=== PATIENT | male | born 1960 | race Caucasian/White ===

== ENCOUNTER 2022-02-02 14:06 | Inpatient (IN) | payer SELFPAY, OTHER ==
[2022-02-02] MEDS ORDERED: METOPROLOL TARTRATE 5 MG/5 ML INJ IV ONE (14:37)
[2022-02-02] MEDS ORDERED: MAGNESIUM SULFATE 1 gm IVPB 1 GM/100 ML BAG IV ONE (14:37)
[2022-02-02 15:11] LABS: Absolute Lymphocytes (CBC) 1.6 K/uL (0.7-4.9); Hematocrit 45.5 % (39.6-49.0); Lymphocytes % 22.1 % (15.3-44.8); MPV 8.8 fL (7.6-11.3); RBC Red Blood Cell Count 5.15 M/uL (4.33-5.43)
[2022-02-02 15:12] LABS: Protime INR 1.31
[2022-02-02 15:27] LABS: Albumin 3.6 g/dL (3.4-5.0); Bilirubin Direct 0.2 mg/dL (0-0.2); Bilirubin Total 0.7 mg/dL (0.2-1.0); Magnesium 2.2 mg/dL (1.8-2.4); Protein, Total 7.3 g/dL (6.4-8.2); Troponin High Sensitivity 27.5 pg/mL (<58.9)
--- NOTE | 2022-02-02 15:33 | RAD REPORT ---
EXAM DESCRIPTION: US - Extrem Venous W Compress Ashish - 02/02/2022 3:22 pm CLINICAL HISTORY: SWELLING Bilateral leg edema and swelling. COMPARISON: No comparisons TECHNIQUE: Real-time sonographic interrogation of the left and right lower extremity deep venous sys tems was performed. FINDINGS: Normal compressibility, flow augmentation, phasic flow and spontaneous flow is identified in both the left and right lower extremity deep venous systems. IMPRESSION: No sonographic evidence of left or right lower extremity deep venous thrombosis.
--- NOTE | 2022-02-02 15:46 | ER ---
Nurse's Notes [facility] Name: Kj Colon Age: 62 yrs Sex: Male : 1960 Arrival Date: 02/02/2022 Time: 14:07 Bed 26 Private MD: Diagnosis: Unspecified atrial fibrillation-new onset Presentation: 02/02 14:21 Chief complaint: Patient states: Shortness of breath x 5 days with bilateral lower jl7 extremity swelling. Coronavirus screen: shortness of breath, Client presents with at least one sign or symptom that may indicate coronavirus-19. Standard/surgical mask placed on the client. Provider contacted for isolation considerations. Ebola Screen: No symptoms or risks identified at this time. Initial Sepsis Screen: Does the patient meet any 2 criteria? No. Patient's initial sepsis screen is negative. Does the patient have a suspected source of infection? No. Patient's initial sepsis screen is negative. Risk Assessment: Do you want to hurt yourself or someone else? Patient reports no desire to harm self or others. Onset of symptoms was January 29, 2022. Care prior to arrival: None. 14:21 Method Of Arrival: Ambulatory 7 14:21 Acuity: CHEN 2 jl7 Triage Assessment: 14:24 General: Appears in no apparent distress. uncomfortable, Behavior is calm, cooperative, jl7 appropriate for age. Pain: Denies pain. Cardiovascular: Patient's skin is warm and dry. Rhythm is atrial fibrillation with rapid ventricular response. Respiratory: Reports shortness of breath Airway is patent Respiratory effort is even, labored, Respiratory pattern is symmetrical, tachypnea Onset: The symptoms/episode began/occurred gradually, the patient has moderate shortness of breath. Derm: Skin is pink, warm \\T\\ dry. Historical: - Allergies: 14:24 PENICILLINS; jl7 - Home Meds: 14:24 None [Active]; jl7 - PMHx: 14:24 None; jl7 - PSHx: 14:24 None; jl7 - Immunization history:: Client reports having NOT received the Covid vaccine. - Social history:: Smoking status: Patient denies any tobacco usage or history of. Screenin:49 Abuse screen: Denies threats or abuse. Nutritional screening: No deficits noted. ap3 Tuberculosis screening: No symptoms or risk factors identified. Fall Risk No fall in past 12 months (0 pts). No secondary diagnosis (0 pts). IV access (20 points). Ambulatory Aid- None/Bed Rest/Nurse Assist (0 pts). Gait- Normal/Bed Rest/Wheelchair (0 pts) Mental Status- Oriented to own ability (0 pts). Assessment: 14:48 General: Appears in no apparent distress. Behavior is calm, cooperative. Pain: Denies ap3 pain. Neuro: Level of Consciousness is awake, alert, obeys commands, Oriented to person, place, time, situation. Cardiovascular: Rhythm is atrial fibrillation with rapid ventricular response. Respiratory: Airway is patent Respiratory effort is even, labored, Respiratory pattern is tachypnea Breath sounds are clear in left posterior upper lobe and right posterior upper lobe. 14:50 General: ultrasound at the bedside. ap3 15:05 General: patient refusing COVID swab testing. Provider notified and reported to bedside ap3 for further education. Patient continues to refuse COVID swab testing. . 15:54 Reassessment: Patient appears in no apparent distress at this time. Patient and/or jb4 family updated on plan of care and expected duration. Pain level reassessed. Pt remains A\\T\\Ox3, continues to refuse covid swab. Respirations remain labored. HR decreased, reports being able to breathe easier, and feels less short of breath. 17:05 Reassessment: Pt reports feeling better at this time and voices that he is going to go jb4 home AMA. Informed pt that symptoms could return or worsen with further complications up to the point of . Pt verbalized understanding of risk and states " if I had insurance I would stay, but I cannot pay because I do not have insurance so I feel like I have no choice but to leave.". Informed pt that insurance is not an issue. That pt would still receive medical treatment regardless of insurance status. That the provider, and this nurse were concerned of current medical condition and felt that it is safest and best for the patient to remain in the hospital to finish treatment, and evaluation by the hospitalist, and cardiology prior to leaving the hospital to establish the best treatment plan. Pt verbalized understanding of information and continues to state " I understand and I thank you for your concern. I cannot pay the bill, I cannot afford the bill, and I want to pay it but I cannot so I feel I have no choice but to leave.". Again, reiterated risk of leaving AMA, ED provider spoke with pt. Pt continues to verbalize intent to leave AMA. AMA form signed. 17:53 Reassessment: Pt attempted to walk out of ED after signing AMA form. Pt became jb4 diaphoretic, dizzy, nauseous, SOB, Tachypneic, and unable to walk to the door. assisted pt to wheelchair. Notified provider. Pt assisted back to room, assisted to bed, Pt now states " I will stay. I have to, I can't even make it to the door." . reconnected to monitoring equipment. admitting physician at the bedside. 19:30 General: Appears in no apparent distress. uncomfortable, Behavior is calm, cooperative, al4 Patient is alert and oriented sitting up in bed talking. Patient states he feels better now compared to earlier, and denies c/p, SOB. . Pain: Denies pain. Neuro: Level of Consciousness is awake, alert, obeys commands, Oriented to person, place, time, situation. Cardiovascular: Capillary refill < 3 seconds Patient's skin is warm and dry. Chest pain is denied. Respiratory: Airway is patent Respiratory effort is unlabored, Respiratory pattern is regular. Respiratory:. Musculoskeletal: Circulation, motion, and sensation intact. 20:30 Reassessment: Patient and/or family updated on plan of care and expected duration. Pain al4 level reassessed. 20:50 Reassessment: Patient states he feels jittery after breathing treatment. Patient denies al4 C/P and SOB. Patient states he feel nauseous, emesis bag given, medication denied by patient. 21:01 Reassessment: Patients son at bedside. Patient requested to be off NC. Patient is at al4 94% on RA. Patient educated and told that if the oxygen saturation drops lower that he will be put back on the NC. Patient denies pain at this time. 21:40 Reassessment: Report given to CRAIG Chapman. al4 Vital Signs: 14:21 BP 130 / 105; Pulse 167; Resp 26; Temp 97.9; Pulse Ox 97% on R/A; Weight 102.06 kg; jl7 Height 6 ft. 3 in. (190.50 cm); Pain 0/10; 14:50 BP 140 / 94; Pulse 129; Pulse Ox 99% on R/A; ap3 15:05 BP 123 / 95; Pulse 122; Pulse Ox 98% on R/A; ap3 15:16 Pulse 111; ap3 15:22 Pulse 119; Pulse Ox 87% on R/A; ap3 15:22 BP 116 / 95; Pulse 109; Pulse Ox 94% on 2 lpm NC; ap3 15:57 BP 112 / 93; Pulse 117; Resp 19; Pulse Ox 97% on 2 lpm NC; jb4 17:34 BP 112 / 82; Pulse 121; Resp 26; Pulse Ox 97% on R/A; jb4 17:55 BP 99 / 72; Pulse 125; Resp 27; Pulse Ox 94% on R/A; jb4 19:00 BP 115 / 82; Pulse 102; Resp 17; Pulse Ox 99% on 2 lpm NC; al4 20:00 BP 109 / 77; Pulse 105; Resp 18; Pulse Ox 100% on 2 lpm NC; al4 20:30 BP 123 / 86; Pulse 114; Resp 18; Pulse Ox 95% on 2 lpm NC; al4 21:30 BP 102 / 77; Pulse 113; Resp 24 S; Pulse Ox 95% on R/A; al4 14:21 Body Mass Index 28.12 (102.06 kg, 190.50 cm) jl7 ED Course: 14:07 Patient arrived in ED. as 14:18 Kj Ramsey NP is PHCP. pm1 14:18 Teddy Tao MD is Attending Physician. pm1 14:24 Triage completed. jl7 14:24 Arm band placed on right wrist. jl7 14:36 Bed in low position. Call light in reach. Side rails up X 1. Door closed. Noise mb7 minimized. 14:36 EKG done, by machine tool technician instructor. reviewed by Kj Ramsey NP. mb7 14:37 Inserted saline lock: 20 gauge in left wrist, using aseptic technique. zm 14:45 Joyce Eli, CRAIG is Primary Nurse. ap3 15:24 Extrem Venous W Compression Ashish US In Process Unspecified. EDMS 15:40 XRAY Chest (1 view) In Process Unspecified. EDMS 15:46 Todd Gee MD is Hospitalizing Provider. pm1 17:02 Beny Peraza MD is Referral Physician. pm1 17:34 No provider procedures requiring assistance completed. IV discontinued, intact, jb4 bleeding controlled, No redness/swelling at site. Pressure dressing applied. 17:46 Todd Gee MD is Hospitalizing Provider. pm1 18:07 Inserted saline lock: 18 gauge in right antecubital area, using aseptic technique. jb4 02/03 07:20 Primary Nurse role handed off by Joyce Eli RN 07:45 Ousmane Fernandez, CRAIG is Primary Nurse. ll1 19:19 Primary Nurse role handed off by Ousmane Fernandez, CRAIG mw2 Administered Medications: 02/02 14:45 Drug: Magnesium Sulfate 1 grams Route: IVPB; Infused Over: 1 hrs; Site: right ap3 antecubital; 15:45 Follow up: Response: No adverse reaction; IV Status: Completed infusion jb4 14:46 Drug: Lopressor (metoprolol) 5 mg Route: IVP; Site: right antecubital; ap3 14:58 Drug: Lopressor (metoprolol) 5 mg Route: IVP; Site: left forearm; ap3 15:12 Drug: Lopressor (metoprolol) 5 mg Route: IVP; Site: left forearm; ap3 15:24 Follow up: Response: No adverse reaction ap3 16:05 Drug: Lovenox (enoxaparin) 1 mg/kg Route: Sub-Q; Site: right lower abdomen; jb4 17:35 Follow up: Response: No adverse reaction jb4 16:05 Drug: Lopressor (metoprolol TARTRATE) 50 mg Route: PO; jb4 17:35 Follow up: Response: No adverse reaction; Marked relief of symptoms jb4 Outcome: 15:46 Decision to Hospitalize by Provider. pm1 17:04 Discharge ordered by . pm1 17:34 AMA AMA form signed jb4 17:34 Condition: improved 17:34 Discharge instructions given to patient, Instructed on discharge instructions, follow up and referral plans. medication usage, Demonstrated understanding of instructions, follow-up care, medications, Prescriptions given X 2. 17:36 Patient left the ED. jb4 17:46 Decision to Hospitalize by Provider. pm1 0405 09:32 Patient left the ED. vg1 Signatures: Dispatcher [employer] EDMS Alyssa Arzola Meghana as Marinas, Kj, NUTRITIONIST NUTRITIONIST pm1 Sanjeev Benedict, RN RN jb4 David Sousa, RN RN jl7 Joyce Eli RN RN ap3 Yulisa, Katie mw2 Cheri Toney, RN RN vg1 Ousmane Fernandez, RN RN ll1 Ramsey, Manjula mb7 Juan David Camejo al4 Joycelyn Marte Corrections: (The following items were deleted from the chart) 02/02 14:24 14:24 Allergies: No Known Allergies; jl7 jl7 21: 19:00 BP 115 / 82; Pulse 102bpm; Resp 17bpm; Pulse Ox 99%; al4 al4 21: 20:00 BP 109 / 77; Pulse 105bpm; Resp 18bpm; Pulse Ox 100%; al4 al4 21:01 20:30 BP 123 / 86; Pulse 114bpm; Resp 18bpm; Pulse Ox 95%; al4 al4 21:52 21:30 Reassessment: Report given to CRAIG Chapman4 al4
--- NOTE | 2022-02-02 15:47 | EDPHYS ---
Physician Documentation [facility] Name: Kj Colon Age: 62 yrs Sex: Male : 1960 Arrival Date: 02/02/2022 Time: 14:07 Bed 26 Private MD: ED Physician Teddy Tao HPI: 02/02 14:28 This 62 yrs old Male presents to ER via Ambulatory with complaints of Feet Swelling, pm1 Chest Congestion, Shortness Of Breath. 14:28 The patient has shortness of breath with light activity. Onset: The symptoms/episode pm1 began/occurred 4 day(s) ago. Duration: The symptoms are intermittent, worse and lasting longer since last night. The patient's shortness of breath is aggravated by light activity, walking, is alleviated by nothing. Associated signs and symptoms: Pertinent positives: productive cough, bilateral pedal edema, Pertinent negatives: fever, nausea, vomiting, diarrhea. Severity of symptoms: in the emergency department the symptoms are worse Pain is currently a 0 / 10. The patient has not experienced similar symptoms in the past. The patient has not recently seen a physician. Historical: - Allergies: 14:24 PENICILLINS; jl7 - Home Meds: 14:24 None [Active]; jl7 - PMHx: 14:24 None; jl7 - PSHx: 14:24 None; jl7 - Immunization history:: Client reports having NOT received the Covid vaccine. - Social history:: Smoking status: Patient denies any tobacco usage or history of. ROS: 14:28 Constitutional: Negative for fever, chills, and weight loss. pm1 14:28 Abdomen/GI: Negative for abdominal pain, nausea, vomiting, diarrhea, and constipation, Back: Negative for injury and pain, MS/Extremity: Negative for injury and deformity, Skin: Negative for injury, rash, and discoloration, Neuro: Negative for headache, weakness, numbness, tingling, and seizure. 14:28 Cardiovascular: Positive for edema, palpitations, Negative for chest pain. 14:28 Respiratory: Positive for cough, dyspnea on exertion, shortness of breath. 14:28 All other systems are negative. Exam: 14:28 Constitutional: This is a well developed, well nourished patient who is awake, alert, pm1 and in no acute distress. Head/Face: Normocephalic, atraumatic. 14:28 Back: No spinal tenderness. No costovertebral tenderness. Full range of motion. Skin: Warm, dry with normal turgor. Normal color with no rashes, no lesions, and no evidence of cellulitis. MS/ Extremity: Pulses equal, no cyanosis. Neurovascular intact. Full, normal range of motion. 14:28 Eyes: Exam is negative for acute changes, Pupils: no acute changes, Extraocular movements: no acute changes, Conjunctiva: normal, no injection. 14:28 ENT: Exam is negative for acute changes, Mouth: no acute changes, Lips: normal, moist, Oral mucosa: normal, pink and intact, moist. 14:28 Cardiovascular: Exam negative for acute changes, Rate: tachycardic, Rhythm: irregular, Pulses: no pulse deficits are appreciated, Heart sounds: normal, Edema: 1+ edema to level of left midcalf and left ankle, 2+ edema to level of right midcalf and right ankle. 14:28 Respiratory: Exam negative for acute changes, the patient does not display signs of respiratory distress, Respirations: normal, Breath sounds: are clear throughout. 14:28 Abdomen/GI: Inspection: abdomen appears normal, Palpation: abdomen is soft and non-tender, in all quadrants. 14:28 Neuro: Exam negative for acute changes, Orientation: is normal, Mentation: is normal, Motor: is normal, moves all fours. Vital Signs: 14:21 BP 130 / 105; Pulse 167; Resp 26; Temp 97.9; Pulse Ox 97% on R/A; Weight 102.06 kg; jl7 Height 6 ft. 3 in. (190.50 cm); Pain 0/10; 14:50 BP 140 / 94; Pulse 129; Pulse Ox 99% on R/A; ap3 15:05 BP 123 / 95; Pulse 122; Pulse Ox 98% on R/A; ap3 15:16 Pulse 111; ap3 15:22 Pulse 119; Pulse Ox 87% on R/A; ap3 15:22 BP 116 / 95; Pulse 109; Pulse Ox 94% on 2 lpm NC; ap3 15:57 BP 112 / 93; Pulse 117; Resp 19; Pulse Ox 97% on 2 lpm NC; jb4 17:34 BP 112 / 82; Pulse 121; Resp 26; Pulse Ox 97% on R/A; jb4 17:55 BP 99 / 72; Pulse 125; Resp 27; Pulse Ox 94% on R/A; jb4 19:00 BP 115 / 82; Pulse 102; Resp 17; Pulse Ox 99% on 2 lpm NC; al4 20:00 BP 109 / 77; Pulse 105; Resp 18; Pulse Ox 100% on 2 lpm NC; al4 20:30 BP 123 / 86; Pulse 114; Resp 18; Pulse Ox 95% on 2 lpm NC; al4 21:30 BP 102 / 77; Pulse 113; Resp 24 S; Pulse Ox 95% on R/A; al4 14:21 Body Mass Index 28.12 (102.06 kg, 190.50 cm) jl7 MDM: 14:18 Patient medically screened. pm1 15:25 Data reviewed: vital signs. Data interpreted: Pulse oximetry: on room air is 98 %. pm1 Interpretation: normal. 15:44 Counseling: I had a detailed discussion with the patient and/or guardian regarding: the pm1 historical points, exam findings, and any diagnostic results supporting the discharge/admit diagnosis, lab results, radiology results, the need for further work-up and treatment in the hospital. 16:34 Physician consultation: NEMESIO Medina in the emergency department to see patient at 16:34, pm1 Patient currently does not want to be admitted to the hospital because he is worried about the financial responsibility. 16:56 Refusal of service: The patient/guardian displays adequate decision making capability pm1 and despite a detailed discussion of alternatives, benefits, risks, and consequences refuses: Admission to the hospital for further work-up and treatment. 16:56 ED course: Patient is worried about the financial responsibility. Patient informed we pm1 treat patients regardless of financial or insurance status. Patient believes that he can go home and follow up with a knit goods cutter hand. Informed the patient that there is further treatment and evaluation that needs to be performed with a hospitalization. Informed that he risks worsening of his condition, and/or by signing out against medical advice. 17:47 ED course: Patient decided to be admitted after he experienced dyspnea on exertion pm1 attempting to walk from the his room to the exit doors. Hospitalist contacted. 02/02 14:27 Order name: Basic Metabolic Panel; Complete Time: 15:41 pm1 02/02 14:27 Order name: CBC with Diff; Complete Time: 15:25 pm1 02/02 14:27 Order name: LFT's; Complete Time: 15:41 pm1 02/02 14:27 Order name: Magnesium; Complete Time: 15:41 pm1 02/02 14:27 Order name: NT PRO-BNP; Complete Time: 15:41 pm1 02/02 14:27 Order name: PT-INR; Complete Time: 15:15 pm1 02/02 14:27 Order name: Troponin HS; Complete Time: 15:41 pm1 02/02 14:32 Order name: COVID-19 SARS RT PCR (Document "Date of Onset" if Symptomatic) pm1 02/02 18:51 Order name: T4 Free; Complete Time: 19:11 EDMS 02/02 18:51 Order name: Thyroid Stimulating Hormone; Complete Time: 19:11 EDMS 02/02 19:04 Order name: Lipid Profile; Complete Time: 19:11 EDMS 02/03 03:01 Order name: Urinalysis; Complete Time: 03:55 EDMS 02/03 03:28 Order name: CBC with Automated Diff; Complete Time: 03:55 EDMS 02/03 03:41 Order name: Basic Metabolic Panel; Complete Time: 03:55 EDMS 02/02 14:27 Order name: XRAY Chest (1 view); Complete Time: 16:11 pm1 02/02 14:27 Order name: EKG; Complete Time: 14:28 pm1 02/02 14:27 Order name: Cardiac monitoring; Complete Time: 14:31 pm1 02/02 14:27 Order name: EKG - Nurse/Tech; Complete Time: 14:31 pm1 02/02 14:27 Order name: IV Saline Lock; Complete Time: 14:31 pm1 02/02 14:27 Order name: Labs collected and sent; Complete Time: 15:26 pm1 02/02 14:27 Order name: Extrem Venous W Compression Ashish US; Complete Time: 15:41 pm1 02/03 03:43 Order name: Hemoglobin A1c; Complete Time: 03:55 EDMS 02/04 03:56 Order name: CBC with Automated Diff EDMS 02/04 04:10 Order name: Comprehensive Metabolic Panel EDMS 02/04 04:10 Order name: NT PRO-BNP EDMS 02/04 04:10 Order name: Magnesium EDMS 02/02 14:27 Order name: O2 Per Protocol; Complete Time: 14:31 pm1 02/02 14:27 Order name: O2 Sat Monitoring; Complete Time: 14:31 pm1 Administered Medications: 14:45 Drug: Magnesium Sulfate 1 grams Route: IVPB; Infused Over: 1 hrs; Site: right ap3 antecubital; 15:45 Follow up: Response: No adverse reaction; IV Status: Completed infusion jb4 14:46 Drug: Lopressor (metoprolol) 5 mg Route: IVP; Site: right antecubital; ap3 14:58 Drug: Lopressor (metoprolol) 5 mg Route: IVP; Site: left forearm; ap3 15:12 Drug: Lopressor (metoprolol) 5 mg Route: IVP; Site: left forearm; ap3 15:24 Follow up: Response: No adverse reaction ap3 16:05 Drug: Lovenox (enoxaparin) 1 mg/kg Route: Sub-Q; Site: right lower abdomen; jb4 17:35 Follow up: Response: No adverse reaction jb4 16:05 Drug: Lopressor (metoprolol TARTRATE) 50 mg Route: PO; jb4 17:35 Follow up: Response: No adverse reaction; Marked relief of symptoms jb4 Disposition Summary: 02/02/22 17:46 Hospitalization Ordered Hospitalization Status: Inpatient Admission(02/02/22 17:46) pm1 Provider: Todd Gee(02/02/22 17:46) pm1 Condition: Fair(02/02/22 17:46) pm1 Problem: new(02/02/22 17:46) pm1 Symptoms: have improved(02/02/22 17:46) pm1 Bed/Room Type: Standard(02/02/22 17:46) pm1 Location: Telemetry/MedSurg (Inpatient)(02/04/22 07:53) ja1 Room Assignment: [facility](02/04/22 07:53) [facility] Diagnosis - Unspecified atrial fibrillation - new onset(02/02/22 17:46) pm1 Forms: - Medication Reconciliation Form pm1 - SBAR form pm1 Signatures: Dispatcher [employer] EDMS Kyra Toney, RN RN Kj Mejía NP PROFESSIONAL DEVELOPMENT INSTRUCTOR pm1 Sanjeev Benedict RN RN jb4 David Sousa, RN RN jl7 Hira Harvey, RN RN ja1 Joyce Eli RN RN ap3 Corrections: (The following items were deleted from the chart) 14:24 14:24 Allergies: No Known Allergies; jl7 jl7 17:02 15:46 Inpatient Admission pm1 pm1 17:02 15:46 Todd Gee pm1 pm1 17:02 15:46 Telemetry/MedSurg (Inpatient) pm1 pm1 17:02 15:46 Stable pm1 pm1 17:02 15:46 new pm1 pm1 17:02 15:46 have improved pm1 pm1 17:02 15:46 Standard pm1 pm1 17:02 15:46 pm1 pm1 17:02 15:46 Unspecified atrial fibrillation - new onset pm1 pm1 17:46 17:04 Home pm1 pm1 17:46 17:04 new pm1 pm1 17:46 17:04 have improved pm1 pm1 17:46 17:04 Undetermined pm1 pm1 17:46 17:04 Unspecified atrial fibrillation - new onset pm1 pm1 20:17 17:46 Telemetry/MedSurg (Inpatient) pm1 cg 20:17 17:46 pm1 cg 02/04 07:53 0403 20:17 [facility] ja1 02/04 07:53 0403 20:17 ERHOLD- cg ja1
--- NOTE | 2022-02-02 15:49 | RAD REPORT ---
EXAM DESCRIPTION: RAD - Chest Single View - 02/02/2022 3:38 pm CLINICAL HISTORY: SOB Chest pain. COMPARISON: No comparisons FINDINGS: Portable technique limits examination quality. Mild pulmonary edema is suspected. The heart is moderately enlarged in size. No displaced fractures. IMPRESSION: Mild to moderate CHF.
[2022-02-02] MEDS ORDERED: ENOXAPARIN 100 MG/ML SYR SQ ONE (16:03)
[2022-02-02] MEDS ORDERED: METOPROLOL TAR 50 MG TAB ONE (16:03)
[2022-02-02] MEDS ORDERED: LABETALOL 20 MG/4ML SYRINGE IV PRN (18:08)
[2022-02-02] MEDS ORDERED: HYDROCODONE/APAP 5/325 MG TAB PO PRN (18:08)
[2022-02-02] MEDS ORDERED: ONDANSETRON 4 MG/2 ML VIAL IV PRN (18:18)
[2022-02-02] MEDS ORDERED: ALBUTEROL 2.5 MG/3 ML NEB SOL NEB PRN (18:18)
[2022-02-02] MEDS ORDERED: ZOLPIDEM TARTRATE 5 MG TABLET PO PRN (18:18)
--- NOTE | 2022-02-02 18:39 | P.HP ---
Certification for Inpatient Patient admitted to: Inpatient With expected LOS: >2 Midnights Practitioner: I am a practitioner with admitting privileges, knowledge of patient current condition, hospital course, and medical plan of care. Services: Services provided to patient in accordance with Admission requirements found in Title 42 Section 412.3 of the Code of Federal Regulations Patient History Date of Service: 02/02/22 Reason for admission: SOB, BLE edema History of Present Illness: Patient is a 62-year-old male with no known past medical history presents with complaint of shortness of breath that has been ongoing for the past 4 weeks. Patient also reports bilateral lower extremity swelling onset 2 days ago. Patient indicated that shortness of breath has become worse over time to the point that patient could barely walk without getting short of breath. Patient reports associated signs and symptoms of cough and congestion. Patient denies any other signs or symptoms. Symptoms are aggravated by exertion and relieved by nothing. Patient decided to present to the hospital due to worsening symptoms. Allergies pollen extracts Allergy (Verified 02/02/22 21:58) Hives/Rash Home medications list reviewed: Yes Home Medications: NK [No Home Meds] 02/02/22 - Family History Mother -: Heart disease Father -: Cancer - Social History Smoking Status: Unknown if ever smoked Alcohol use: No CD- Drugs: No Caffeine use: No Place of Residence: Home Review of Systems General: Unremarkable Eyes: Unremarkable ENT: Unremarkable Respiratory: Cough, Shortness of Breath, SOB with Excertion Cardiovascular: Unremarkable Gastrointestinal: Unremarkable Genitourinary: Unremarkable Musculoskeletal: Unremarkable Integumentary: Unremarkable Neurological: Unremarkable Lymphatics: Unremarkable Physical Examination - Physical Exam General: Alert, Oriented x3 HEENT: Atraumatic, Normocephalic, PERRLA Neck: Supple, 2+ carotid pulse no bruit, JVD not distended Respiratory: Diminished Cardiovascular: Regular rate/rhythm, Edema Capillary refill: <2 Seconds Gastrointestinal: Normal bowel sounds Musculoskeletal: No clubbing, Swelling Integumentary: No rashes, No breakdown Neurological: Normal gait, Normal speech, Normal strength at 5/5 x4 extr Lymphatics: No axilla or inguinal lymphadenopathy - Studies Laboratory Data (last 24 hrs) 02/02/22 14:38: PT 14.5 H, INR 1.31 02/02/22 14:38: WBC 7.3, Hgb 15.0, Hct 45.5, Plt Count 194 02/02/22 14:38: Sodium 139, Potassium 4.0, BUN 15, Creatinine 1.23, Glucose 112 H, Magnesium 2.2, Total Bilirubin 0.7, AST 27, ALT 32, Alkaline Phosphatase 67 Assessment and Plan - Plan ---A. fib with RVR. Patient given Lopressor in the ER. Cardiology consulted. Continue metoprolol. Patient placed on Lovenox subQ. Further management per wood science professor. --Suspected systolic CHF. BNP elevated. Patient placed on diuresis with Lasix. Daily weight and strict I/O. Echocardiogram pending to assess LV\valvular function and wall motion. Further management per wood science professor. --CKD 2. Baseline functions unknown. We will continue to monitor renal functions. --Pulmonary edema. Noted on imaging. Continue diuresis with Lasix. --Cough. Antitussives on board. --Allergic Rhinitis. Continue home medications when available. --DVT prophylaxis with Lovenox subQ. Discharge Plan: Home Plan to discharge in: 48 Hours - Advance Directives Does patient have a Living Will: No Does patient have a Durable POA for Healthcare: No - Code Status/Comfort Care Code Status Assessed: Yes Code Status: Full Code Physician Review: Patient Assessed, Agree with Above Assessment and Plan Critical Care: No
[2022-02-02 18:51] LABS: Thyroid Stimulating Hormone 3.1 uIU/mL (0.360-3.740)
[2022-02-02] MEDS: FUROSEMIDE 40 MG/4 ML VIAL IV SCH (19:00)
[2022-02-02] MEDS: METOPROLOL TAR 25 MG TAB PO SCH (19:00)
[2022-02-02] MEDS ORDERED: IPRATROPIUM BROM 0.5MG/2.5ML ONE (19:56)
[2022-02-02] MEDS: IPRATROPIUM BROM 0.5MG/2.5ML NEB SCH (20:05)
[2022-02-02] MEDS ORDERED: FUROSEMIDE 40 MG/4 ML VIAL ONE (22:58)
[2022-02-02] MEDS ORDERED: METOPROLOL TAR 25 MG TAB ONE (22:58)
[2022-02-03 00:07] VITALS: BMI 31.8
[2022-02-03] MEDS: IPRATROPIUM BROM 0.5MG/2.5ML NEB SCH ×4 (01:05→19:35)
[2022-02-03] MEDS ORDERED: IPRATROPIUM BROM 0.5MG/2.5ML ONE ×2 (01:10→19:38)
[2022-02-03] MEDS: ACETAMINOPHEN 500 MG TAB PO PRN ×2 (01:42→18:07)
[2022-02-03] MEDS ORDERED: ACETAMINOPHEN 500 MG TAB ONE ×2 (01:43→18:08)
[2022-02-03 03:01] LABS: Urine Appearance Clear (Clear); Urine Bilirubin Negative (Negative); Urine Blood Negative (Negative); Urine Color Yellow (Yellow); Urine Glucose Negative (Negative); Urine Protein Negative (Negative); Urine Urobilinogen 0.2 mg/dL (0.2-1.0)
[2022-02-03 03:14] LABS: Urine Microscopic Reflex NO UMIC
[2022-02-03 03:27] LABS: Absolute Lymphocytes (CBC) 1.3 K/uL (0.7-4.9); Hematocrit 43.7 % (39.6-49.0); Lymphocytes % 14.4 % (15.3-44.8); MPV 8.5 fL (7.6-11.3); RBC Red Blood Cell Count 4.98 M/uL (4.33-5.43)
[2022-02-03 03:40] LABS: Potassium 4.5 mmol/L (3.5-5.1)
[2022-02-03] MEDS: METOPROLOL TAR 25 MG TAB PO SCH ×2 (06:00→17:05)
[2022-02-03] MEDS ORDERED: METOPROLOL TAR 25 MG TAB ONE ×2 (06:06→16:04)
[2022-02-03] MEDS ORDERED: FUROSEMIDE 40 MG/4 ML VIAL ONE ×2 (07:32→16:04)
[2022-02-03] MEDS ORDERED: ENOXAPARIN 100 MG/ML SYR SQ ONE ×2 (07:32→20:55)
[2022-02-03] MEDS: FUROSEMIDE 40 MG/4 ML VIAL IV SCH ×2 (08:59→17:00)
[2022-02-03] MEDS: ENOXAPARIN 100 MG/ML SYR SQ SCH ×2 (08:59→21:07)
--- NOTE | 2022-02-03 11:14 | EKG ---
Test Date: 2022-02-02 Test Time: 14:17:06 Advertising Sales Assistant: RAMANDEEP MEASUREMENT RESULTS: Intervals: Rate: 169 CO: QRSD: 86 QT: 290 QTc: 486 [place]: P: CO: QRS: 85 T: 269 INTERPRETIVE STATEMENTS: Atrial fibrillation with rapid ventricular response Nonspecific T wave abnormality Abnormal ECG No previous ECG available for comparison Electronically Signed On 02-03-22 11:12:14 CDT by Beny Peraza
--- NOTE | 2022-02-03 11:46 | ECHO ---
HEIGHT: 6 ft 3 in WEIGHT: 255 lb 0 oz DATE OF STUDY: 02/03/[address]: Russell Coronel 2-DIMENSIONAL: YES M.MODE: YES DOPPLER: YES COLOR FLOW: YES TDS: NO PORTABLE: NO DEFINITY: NO BUBBLE STUDY: NO DIAGNOSIS: SUSPECTED CONGESTIVE HEART FAILURE CARDIAC HISTORY: CATHERIZATION: NO SURGERY: NO PROSTHETIC VALVE: NO PACEMAKER: NO MEASUREMENTS (cm) DIASTOLIC (NORMALS) SYSTOLIC (NORMALS) IVSd 1.0 (0.6-1.2) LA Diam 3.8 (1.9-4.0) LVEF 10% LVIDd 5.8 (3.5-5.7) LVIDs 5.5 (2.0-3.5) %FS 5% LVPWd 1.1 (0.6-1.2) Ao Diam 3.2 (2.0-3.7) 2 DIMENSIONAL ASSESSMENT: RIGHT ATRIUM: NORMAL LEFT ATRIUM: NORMAL RIGHT VENTRICLE: NORMAL LEFT VENTRICLE: DILATED TRICUSPID VALVE: NORMAL MITRAL VALVE: NORMAL PULMONIC VALVE: NORMAL AORTIC VALVE: NORMAL PERICARDIAL EFFUSION: NONE AORTIC ROOT: NORMAL LEFT VENTRICULAR WALL MOTION: SEVERE GLOBAL HYPOKINESIS. DOPPLER/COLOR FLOW: NORMAL. COMMENTS: ATRIAL FIBRILLATION. SEVERE GLOBAL HYPOKINESIS. EJECTION FRACTION 10-15% TECHNOLOGIST: RODRIGUEZ MONROY
--- NOTE | 2022-02-03 17:32 | P.PN ---
Subjective Date of Service: 02/03/22 Subjective: No new changes, No C/O voiced, Improving Review of Systems 10-point ROS is otherwise unremarkable Physical Examination - Vital Signs Temperature: 97.6 F Blood Pressure: 107/79 Pulse: 128 Respirations: 20 Pulse Ox (%): 99 - Physical Exam General: Alert, In no apparent distress, Oriented x3 Respiratory: Diminished, Crackles/rales Cardiovascular: Regular rate/rhythm, Normal S1 S2, Systolic murmur Gastrointestinal: Normal bowel sounds, Soft and benign, Non-distended, No tenderness Musculoskeletal: No clubbing, Swelling Neurological: Sensation intact, Cranial nerves 3-12 intact - Studies Laboratory Data (last 24 hrs) 02/02/22 14:38: Triglycerides 134, Cholesterol 101, HDL Cholesterol 35 L, Cholesterol/HDL Ratio 2.89 Medications List Reviewed: Yes Assessment & Plan - Problems (Diagnosis) (1) Dilated cardiomyopathy Current Visit: Yes Status: Acute (2) Cardiac LV ejection fraction 10-20% Current Visit: Yes Status: Acute - Plan PLAN: 1. Echocardiogram showed EF<10% 2. Continue with cardiac meds 3. Continue with beta-verito therapy 4. Cardiology consultation pending 5. Aggressive diuresis 6. Strict I's and O's 7. Repeat CXR 8. Daily weights 9. Education regarding diet and treatment of congestive heart failure Discharge Plan: Home Plan to discharge in: Greater than 2 days - Advance Directives Does patient have a Living Will: No Does patient have a Durable POA for Healthcare: No - Code Status/Comfort Care Code Status: Full Code Physician Review: Patient Assessed, Agree with Above Assessment and Plan Critical Care: No Time Spent Managing PTS Care (In Minutes): 40
[2022-02-03] MEDS ORDERED: INFLUENZA VACCINE (for 6+ mo) 0.5 ML DOSE IMVAC ONE (20:00)
[2022-02-03] MEDS ORDERED: SPIRONOLACTONE 25 MG TABLET ONE (20:57)
[2022-02-03] MEDS: SPIRONOLACTONE 25 MG TABLET PO SCH (21:07)
[2022-02-03] MEDS: GUAIFENESIN/CODEINE 5ML UCUP PO PRN (23:31)
[2022-02-03] MEDS ORDERED: GUAIFENESIN/CODEINE 5ML UCUP ONE (23:34)
[2022-02-04] MEDS: FUROSEMIDE 40 MG/4 ML VIAL IV SCH ×2 (01:00→09:56)
[2022-02-04] MEDS: IPRATROPIUM BROM 0.5MG/2.5ML NEB SCH ×4 (02:00→20:00)
[2022-02-04 03:56] LABS: Absolute Lymphocytes (CBC) 1.9 K/uL (0.7-4.9); Hematocrit 41.4 % (39.6-49.0); Lymphocytes % 29.2 % (15.3-44.8); MPV 8.3 fL (7.6-11.3); RBC Red Blood Cell Count 4.74 M/uL (4.33-5.43)
[2022-02-04 04:10] LABS: Albumin 3.2 g/dL (3.4-5.0); Bilirubin Total 0.7 mg/dL (0.2-1.0); Magnesium 2.2 mg/dL (1.8-2.4); Potassium 3.5 mmol/L (3.5-5.1); Protein, Total 6.7 g/dL (6.4-8.2)
[2022-02-04] MEDS ORDERED: METOPROLOL TAR 25 MG TAB ONE (05:36)
[2022-02-04] MEDS ORDERED: POTASSIUM CL SA 10 MEQ TAB PO ONE ×2 (05:36→06:00)
[2022-02-04] MEDS: METOPROLOL TAR 25 MG TAB PO SCH (05:37)
[2022-02-04] MEDS ORDERED: IPRATROPIUM BROM 0.5MG/2.5ML ONE (07:47)
[2022-02-04] MEDS ORDERED: LOSARTAN POTASSIUM 50 MG TABLET PO SCH (09:00)
[2022-02-04] MEDS: ENOXAPARIN 100 MG/ML SYR SQ SCH (09:56)
[2022-02-04] MEDS: SPIRONOLACTONE 25 MG TABLET PO SCH ×2 (09:57→21:10)
[2022-02-04] MEDS: FUROSEMIDE 40 MG TABLET PO SCH (17:00)
[2022-02-04] MEDS: METOPROLOL TAR 50 MG TAB PO SCH ×2 (17:34→21:11)
--- NOTE | 2022-02-04 18:10 | P.PN ---
Date of Service: 02/04/22 Subjective Subjective: No new changes, No C/O voiced, Improving Review of Systems 10-point ROS is otherwise unremarkable Physical Examination - Vital Signs reviewed - Physical Exam General: Alert, In no apparent distress, Oriented x3 Respiratory: Diminished, Crackles/rales Cardiovascular: Regular rate/rhythm, Normal S1 S2, Systolic murmur Gastrointestinal: Normal bowel sounds, Soft and benign, Non-distended, No tenderness Musculoskeletal: No clubbing, Swelling Neurological: Sensation intact, Cranial nerves 3-12 intact Assessment & Plan - Problems (Diagnosis) (1) Dilated cardiomyopathy Current Visit: Yes Status: Acute (2) Cardiac LV ejection fraction 10-20% Current Visit: Yes Status: Acute - Plan Continue with plan of care as mentioned below: 1. Echocardiogram showed EF<10% 2. Continue with cardiac meds 3. Continue with beta-verito therapy 4. Cardiology consultation pending 5. Aggressive diuresis 6. Strict I's and O's 7. Repeat CXR 8. Daily weights 9. Education regarding diet and treatment of congestive heart failure
[2022-02-04] MEDS: APIXABAN 5 MG TABLET PO SCH (21:10)
[2022-02-04] MEDS: GUAIFENESIN/CODEINE 5ML UCUP PO PRN (21:10)
[2022-02-05] MEDS: IPRATROPIUM BROM 0.5MG/2.5ML NEB SCH ×4 (01:45→20:00)
[2022-02-05 04:18] LABS: Potassium 3.6 mmol/L (3.5-5.1)
[2022-02-05] MEDS: METOPROLOL TAR 50 MG TAB PO SCH (05:59)
[2022-02-05 06:27] LABS: Magnesium 2.2 mg/dL (1.8-2.4); Phosphorus 2.8 mg/dL (2.5-4.9); Potassium 3.3 mmol/L (3.5-5.1)
[2022-02-05] MEDS ORDERED: LOSARTAN POTASSIUM 50 MG TABLET PO SCH (09:00)
[2022-02-05] MEDS: FUROSEMIDE 40 MG TABLET PO SCH ×2 (09:00→17:00)
[2022-02-05] MEDS ORDERED: POTASSIUM 25 MEQ EFFERV TAB PO ONE (09:00)
[2022-02-05] MEDS: SPIRONOLACTONE 25 MG TABLET PO SCH (09:00)
[2022-02-05] MEDS: APIXABAN 5 MG TABLET PO SCH ×2 (09:11→20:25)
[2022-02-05] MEDS ORDERED: MIDODRINE HCL 5 MG TABLET PO ONE (11:47)
[2022-02-05] MEDS ORDERED: ALBUMIN HUMAN 25% 100 ML IV ONE (11:47)
--- NOTE | 2022-02-05 12:35 | P.PN ---
Date of Service: 02/05/22 Subjective Patient remains hypotensive. Adjusting blood pressure medications. Cardiology wants to follow him in 3 months and repeat the echocardiogram after being on cardiac medications. Continue with current plan of care at this time. Review of Systems 10-point ROS is otherwise unremarkable Physical Examination - Vital Signs reviewed - Physical Exam General: Alert, In no apparent distress, Oriented x3 Respiratory: Diminished, Crackles/rales Cardiovascular: Regular rate/rhythm, Normal S1 S2, Systolic murmur Gastrointestinal: Normal bowel sounds, Soft and benign, Non-distended, No tenderness Musculoskeletal: No clubbing, Swelling Neurological: Sensation intact, Cranial nerves 3-12 intact Assessment & Plan - Problems (Diagnosis) (1) Dilated cardiomyopathy Current Visit: Yes Status: Acute (2) Cardiac LV ejection fraction 10-20% Current Visit: Yes Status: Acute - Plan Continue with plan of care as mentioned below: 1. Echocardiogram showed EF<10% 2. Continue with cardiac meds 3. Continue with beta-verito therapy 4. Cardiology consultation pending 5. Aggressive diuresis 6. Strict I's and O's 7. Repeat CXR 8. Daily weights 9. Education regarding diet and treatment of congestive heart failure
[2022-02-05] MEDS: METOPROLOL TAR 25 MG TAB PO SCH ×2 (17:24→21:42)
[2022-02-05] MEDS: MIDODRINE HCL 5 MG TABLET PO SCH (20:25)
[2022-02-06 00:23] VITALS: O2SAT 98
[2022-02-06] MEDS: IPRATROPIUM BROM 0.5MG/2.5ML NEB SCH ×2 (02:00→08:00)
--- NOTE | 2022-02-06 03:02 | P.DS ---
Discharge Date: 02/06/22 Disposition: ROUTINE DISCHARGE Discharge Condition: GOOD Reason for Admission: SOB, BLE edema - Problems (1) Dilated cardiomyopathy Current Visit: Yes Status: Acute (2) Cardiac LV ejection fraction 10-20% Current Visit: Yes Status: Acute Brief History of Present Illness: Patient is a 62-year-old male with no known past medical history presents with complaint of shortness of breath that has been ongoing for the past 4 weeks. Patient also reports bilateral lower extremity swelling onset 2 days ago. Patient indicated that shortness of breath has become worse over time to the point that patient could barely walk without getting short of breath. Patient reports associated signs and symptoms of cough and congestion. Patient denies any other signs or symptoms. Symptoms are aggravated by exertion and relieved by nothing. Patient decided to present to the hospital due to worsening symptoms. Vital Signs/Physical Exam: Temp Pulse Resp BP Pulse Ox 98.5 F 106 H 19 99/78 96 02/06/22 00:00 02/06/22 00:00 02/06/22 00:00 02/06/22 00:00 02/06/22 00:00 General: Alert, In no apparent distress, Oriented x3 Laboratory Data at Discharge: WBC 6.4 K/uL (4.3-10.9) D 02/04/22 03:34 Hgb 13.8 g/dL (13.6-17.9) 02/04/22 03:34 Hct 41.4 % (39.6-49.0) 02/04/22 03:34 Plt Count 169 K/uL (152-406) 02/04/22 03:34 PT 14.5 SECONDS (9.5-12.5) H 02/02/22 14:38 INR 1.31 02/02/22 14:38 Sodium 139 mmol/L (136-145) 02/05/22 06:02 Potassium 3.3 mmol/L (3.5-5.1) L 02/05/22 06:02 BUN 18 mg/dL (7-18) 02/05/22 06:02 Creatinine 1.05 mg/dL (0.55-1.3) 02/05/22 06:02 Glucose 151 mg/dL (74-106) H 02/05/22 06:02 Phosphorus 2.8 mg/dL (2.5-4.9) 02/05/22 06:02 Magnesium 2.2 mg/dL (1.8-2.4) 02/05/22 06:02 Total Bilirubin 0.7 mg/dL (0.2-1.0) 02/04/22 03:34 AST 29 U/L (15-37) 02/04/22 03:34 ALT 35 U/L (12-78) 02/04/22 03:34 Alkaline Phosphatase 59 U/L (45-117) 02/04/22 03:34 Triglycerides 134 mg/dL (<150) 02/02/22 14:38 Cholesterol 101 mg/dL (<200) 02/02/22 14:38 HDL Cholesterol 35 mg/dL (40-60) L 02/02/22 14:38 Cholesterol/HDL Ratio 2.89 02/02/22 14:38 Home Medications: Apixaban [Eliquis] 5 mg PO BID #60 tablet 02/06/22 Furosemide [Lasix*] 40 mg PO BIDL #60 tab 02/06/22 Metoprolol Tartrate [Lopressor*] 25 mg PO BID 6AM 6PM #60 tab 02/06/22 Midodrine HCl [Proamatine*] 5 mg PO TID #90 tab 02/06/22 New Medications: Apixaban [Eliquis] 5 mg PO BID #60 tablet Furosemide [Lasix*] 40 mg PO BIDL #60 tab Metoprolol Tartrate [Lopressor*] 25 mg PO BID 6AM 6PM #60 tab Midodrine HCl [Proamatine*] 5 mg PO TID #90 tab Physician Discharge Instructions: -DC IV and DC home -Follow-up with PCP in 1 to 2 weeks -Follow-up with Cardiology in 1 to 2 weeks -Please call Dr. Dukes at [phone] if any questions regarding hospital stay -Please call nursing station at [phone] if any nursing or medication questions -Return to the emergency room if symptoms worsen Diet: AHA Activity: Fall precautions Followup: NONE,NONE [Primary Care Provider] - Time spent managing pt's care (in minutes): 35
[2022-02-06 04:36] VITALS: TEMP 98
[2022-02-06] MEDS ORDERED: POTASSIUM 25 MEQ EFFERV TAB PO ONE (06:30)
[2022-02-06] MEDS: METOPROLOL TAR 25 MG TAB PO SCH (06:45)
[2022-02-06] MEDS: FUROSEMIDE 40 MG TABLET PO SCH (08:53)
[2022-02-06] MEDS: APIXABAN 5 MG TABLET PO SCH (08:53)
[2022-02-06] MEDS: MIDODRINE HCL 5 MG TABLET PO SCH (08:53)
[2022-02-06 09:57] VITALS: BP 106/67
--- NOTE | 2022-02-06 15:50 | CON ---
Date of Consultation: 02/03/2022 Reason For Consultation: New onset atrial fibrillation and congestive heart failure. History Of Present Illness: The patient is a 62-year-old. No previous past medical history. Does n ot take any medications. Had some significant intake of alcohol, but not excessive. No family histo ry, allergic to pollen and penicillin. Came in with atrial fibrillation, rapid ventricular response, elevated BNP and CHF on x-ray. Past Medical History: Negative. Allergies: LISTED ABOVE. Medications: None at home. Review of Systems: Negative. Social History: Positive for some alcohol. Family History: Positive for CHF and AFib. Physical Examination: General: He was in AFib. No acute distress. Rate is 110. HEENT: Negative. Neck: Supple with no bruit. Chest: Revealed some rales both bases. Cardiac: Revealed atrial fibrillation. Abdomen: Benign. Extremities: Revealed no clubbing, cyanosis, or edema. Impression And Plan: New onset atrial fibrillation and congestive heart failure. Echocardiogram is pending. We will see what that shows prior to making final decision. We may have to put him on sota lol and amiodarone if he does not convert with beta-blockers. He should be on anticoagulation. Again, we will see what the echo shows before making further decision. ERYN/HARITHA Voice ID: [id number] Report ID: [id number]
--- NOTE | 2022-02-06 16:20 | PN ---
Date of Progress Note: 02/04/2022 Mr. Colon is 62 and came in with AFib and CHF. Echocardiogram today unfortunately showed new onset a cute systolic congestive heart failure with an ejection fraction 10% to 15%. The patient obviously h as poor prognosis. I discussed the case with Dr. Dukes. If his blood pressure tolerates it, he needs to be on carvedilol, Lasix, Aldactone, Entresto or ZAIN inhibitor, anticoagulation and followup echos in the next month, then 3 months, and then decide further down the road or biventricular pacemaker, defibrillator and possibly congestive heart failure, transplant team consultation in [place]. ERYN/HARITHA Voice ID: [id number] Report ID: [id number]
== END 2022-02-06 12:31 | disposition home or self-care (01) | DRG 308 ==
LOC: ER 14:06 → ERHOLD 18:06 → 4TH 02-04 08:24
PROVIDERS: ADMIT Internal Medicine Sleep Medicine; ATTEND Internal Medicine Sleep Medicine
DX: I48.91 Unspecified atrial fibrillation (principal); I50.21 Acute systolic (congestive) heart failure; I42.0 Dilated cardiomyopathy; I95.9 Hypotension, unspecified; R01.1 Cardiac murmur, unspecified; J30.9 Allergic rhinitis, unspecified; R05.9 Cough, unspecified
CPT/HCPCS: 36415; 71045; 80048; 80053; 80061; 80076; 81003; 83036; 83735; 83880; 84100; 84439; 84443; 84484; 85025; 85610; 93005; 93306; 93970; 94640; 96372; 99284; J1650; J1940; J3475; P9047

== ENCOUNTER 2022-04-13 19:37 | Emergency (ER) | payer OTHER, SELFPAY ==
[2022-04-13 20:54] LABS: Absolute Lymphocytes (CBC) 2.2 K/uL (0.7-4.9); Hematocrit 47.6 % (39.6-49.0); Lymphocytes % 28.2 % (15.3-44.8); RBC Red Blood Cell Count 5.58 M/uL (4.33-5.43)
[2022-04-13 20:59] LABS: Protime INR 1.41
[2022-04-13 21:13] LABS: Bilirubin Direct 0.1 mg/dL (0-0.2); Bilirubin Total 0.5 mg/dL (0.2-1.0); Magnesium 2.4 mg/dL (1.8-2.4); Potassium 4.2 mmol/L (3.5-5.1); Protein, Total 8.4 g/dL (6.4-8.2); Troponin High Sensitivity 9.1 pg/mL (<58.9)
--- NOTE | 2022-04-13 22:06 | RAD REPORT ---
EXAM DESCRIPTION: [place] Single View04/13/2022 8:59 pm CLINICAL HISTORY: Shortness of breath COMPARISON: January 2022 FINDINGS: The lungs appear clear of acute infiltrate. The heart is normal size IMPRESSION: No acute abnormalities displayed
--- NOTE | 2022-04-13 22:18 | RAD REPORT ---
EXAM DESCRIPTION: CT - Chest For Pe Angio - 04/13/2022 10:11 pm CLINICAL HISTORY: Shortness of breath COMPARISON: None. TECHNIQUE: Dynamically enhanced axial 3 mm thick images of the chest were obtained during administra tion of <100> mL Isovue 370 IV contrast. Coronal and oblique reconstruction images were generated and reviewed. Exam utilizes a protocol for optimal evaluation of pulmonary arterial tree. Maximum intensity projections 3D imaging was utilized All CT scans are performed using dose optimization technique as appropriate and may include automated exposure control or mA/KV adjustment according to patient size. FINDINGS: A pulmonary embolus is not seen. A thoracic aortic aneurysm is not noted. A pleural effusion is not seen. A pericardial effusion is not seen. A lung consolidation is not present. IMPRESSION: Negative for a pulmonary embolism.
[2022-04-14 00:23] LABS: Urine Blood Negative (Negative); Urine Glucose Negative (Negative); Urine Protein Negative (Negative); Urine Specific Gravity 1.015 (1.005-1.030); Urine pH 5.5 (5.0-7.0)
--- NOTE | 2022-04-14 01:11 | EDPHYS ---
Physician Documentation [facility] Name: Kj Colon Age: 62 yrs Sex: Male : 1960 Arrival Date: 04/13/2022 Time: 19:40 Bed 8 Private MD: ED Physician Juan Daniel Bundy HPI: 04/13 20:40 This 62 yrs old Male presents to ER via Ambulatory with complaints of Shortness Of mh7 Breath, H/O AFIB. 20:40 The patient has shortness of breath with light activity. Onset: The symptoms/episode mh7 began/occurred 2 day(s) ago. Duration: The symptoms are intermittent, with no pattern. The patient's shortness of breath is aggravated by exertion, light activity, is alleviated by rest. Associated signs and symptoms: Pertinent negatives: chest pain, non-productive cough, productive cough, diaphoresis, dizziness, fever, hemoptysis, loss of consciousness, nausea, numbness in extremities, visual changes, vomiting. Severity of symptoms: At their worst the symptoms were moderate 2 day(s) ago, in the emergency department the symptoms have improved moderately. Historical: - Allergies: 19:47 PENICILLINS; jb4 - Home Meds: 19:47 Eliquis oral [Active]; Metoprolol Tartrate Oral [Active]; Furosemide Oral [Active]; jb4 - PMHx: 19:47 A-fib; jb4 19:55 Systolic CHF (EF 10-15%); la1 - PSHx: 19:47 hernia repair; jb4 - Immunization history:: Adult Immunizations not up to date, Client reports having NOT received the Covid vaccine. - Social history:: Smoking status: Patient denies any tobacco usage or history of. ROS: 20:40 Constitutional: Negative for fever, chills, and weight loss, Eyes: Negative for injury, mh7 pain, redness, and discharge, ENT: Negative for injury, pain, and discharge, Neck: Negative for injury, pain, and swelling. 20:40 Abdomen/GI: Negative for abdominal pain, nausea, vomiting, diarrhea, and constipation, Back: Negative for injury and pain, : Negative for injury, bleeding, discharge, and swelling, MS/Extremity: Negative for injury and deformity, Skin: Negative for injury, rash, and discoloration, Neuro: Negative for headache, weakness, numbness, tingling, and seizure, Psych: Negative for depression, anxiety, suicide ideation, homicidal ideation, and hallucinations, Allergy/Immunology: Negative for hives, rash, and allergies, Endocrine: Negative for neck swelling, polydipsia, polyuria, polyphagia, and marked weight changes, Hematologic/Lymphatic: Negative for swollen nodes, abnormal bleeding, and unusual bruising. 20:40 Cardiovascular: Positive for palpitations. Exam: 20:40 Constitutional: This is a well developed, well nourished patient who is awake, alert, mh7 and in no acute distress. Head/Face: Normocephalic, atraumatic. Eyes: Pupils equal round and reactive to light, extra-ocular motions intact. Lids and lashes normal. Conjunctiva and sclera are non-icteric and not injected. Cornea within normal limits. Periorbital areas with no swelling, redness, or edema. Neck: Trachea midline, no thyromegaly or masses palpated, and no cervical lymphadenopathy. Supple, full range of motion without nuchal rigidity, or vertebral point tenderness. No Meningismus. Chest/axilla: Normal chest wall appearance and motion. Nontender with no deformity. No lesions are appreciated. 20:40 Abdomen/GI: Soft, non-tender, with normal bowel sounds. No distension or tympany. No guarding or rebound. No evidence of tenderness throughout. Back: No spinal tenderness. No costovertebral tenderness. Full range of motion. Skin: Warm, dry with normal turgor. Normal color with no rashes, no lesions, and no evidence of cellulitis. MS/ Extremity: Pulses equal, no cyanosis. Neurovascular intact. Full, normal range of motion. Neuro: Awake and alert, GCS 15, oriented to person, place, time, and situation. Cranial nerves II-XII grossly intact. Motor strength 5/5 in all extremities. Sensory grossly intact. Cerebellar exam normal. Normal gait. Psych: Awake, alert, with orientation to person, place and time. Behavior, mood, and affect are within normal limits. 20:40 Cardiovascular: Rate: normal, Rhythm: irregularly irregular, Pulses: no pulse deficits are appreciated, Heart sounds: normal, normal S1and S2, Edema: is not appreciated, JVD: is not appreciated. Vital Signs: 19:46 BP 121 / 82; Pulse 95; Resp 18; Temp 97.5(TE); Pulse Ox 99% on R/A; Weight 101.15 kg jb4 (R); Height 6 ft. 2 in. (187.96 cm) (R); Pain 0/10; 20:58 BP 135 / 94; Pulse 90; Resp 20 S; Pulse Ox 96% on R/A; as6 22:18 BP 137 / 101; Pulse 78; Resp 20 S; Pulse Ox 95% on R/A; as6 04/14 00:03 BP 123 / 90; Pulse 78; Resp 18 S; Pulse Ox 96% on R/A; as6 01:39 BP 129 / 88; Pulse 82; Resp 18 S; Pulse Ox 100% on R/A; as6 04/13 19:46 Body Mass Index 28.63 (101.15 kg, 187.96 cm) 4 MDM: 01:08 Differential diagnosis: Anemia Anxiety Reaction asthma, Bronchitis CHF exacerbation, mh7 Chronic Obstructive Pulmonary Disease Myocardial Infarction pneumonia, Pneumothorax Psychogenic pulmonary edema, Pulmonary Embolism reactive airway disease. Data reviewed: vital signs, nurses notes, old medical records, lab test result(s), cardiac enzymes, CBC, electrolytes, EKG, radiologic studies, CT scan, plain films. Data interpreted: Pulse oximetry: on room air is 97 %. Interpretation: normal. Counseling: I had a detailed discussion with the patient and/or guardian regarding: the historical points, exam findings, and any diagnostic results supporting the discharge/admit diagnosis, lab results, radiology results, the need for outpatient follow up, to return to the emergency department if symptoms worsen or persist or if there are any questions or concerns that arise at home. Response to treatment: the patient's symptoms have resolved after treatment, the patient's blood pressure is in an acceptable range, mental status has returned to baseline, the patient no longer shows bradycardia, the patient is not short of breath, the patient is not tachycardic, the patient's pain is gone, the patient's temperature has normalized. Response to treatment: Ambulating without difficulty. Refusal of service: The patient/guardian displays adequate decision making capability and despite a detailed discussion of alternatives, benefits, risks, and consequences refuses: COVID test. 01:11 Patient medically screened. [facility] 04/13 20:37 Order name: Basic Metabolic Panel; Complete Time: 21:18 [facility] 04/13 20:37 Order name: CBC with Diff; Complete Time: 21:03 [facility] 04/13 20:37 Order name: LFT's; Complete Time: 21:18 [facility] 04/13 20:37 Order name: Magnesium; Complete Time: 21:18 [facility] 04/13 20:37 Order name: NT PRO-BNP; Complete Time: 21:18 [facility] 04/13 20:37 Order name: PT-INR; Complete Time: 21:03 [facility] 04/13 20:37 Order name: Troponin HS; Complete Time: 21:18 [facility] 04/13 20:37 Order name: XRAY Chest (1 view); Complete Time: 22:16 [facility] 04/13 20:37 Order name: EKG; Complete Time: 20:38 [facility] 04/13 20:37 Order name: D-Dimer; Complete Time: 21:03 [facility] 04/13 21:20 Order name: Chest For PE Angio CT; Complete Time: 22:23 [facility] 04/14 00:24 Order name: Urine Dipstick-Ancillary [facility] 04/13 20:37 Order name: Cardiac monitoring; Complete Time: 20:40 [facility] 04/13 20:37 Order name: EKG - Nurse/Tech; Complete Time: 20:40 [facility] 04/13 20:37 Order name: IV Saline Lock; Complete Time: 20:40 [facility] 04/13 20:37 Order name: Labs collected and sent; Complete Time: 20:40 [facility] 04/13 20:37 Order name: O2 Per Protocol; Complete Time: 20:40 [facility] 04/13 20:37 Order name: O2 Sat Monitoring; Complete Time: 20:40 [facility] 04/13 20:38 Order name: Urine Dipstick-Ancillary (obtain specimen); Complete Time: 00:23 mh Administered Medications: No medications were administered Disposition: 07:27 Co-signature as Attending Physician, Juan Daniel Bundy MD. [facility] Disposition Summary: 04/14/22 01:11 Discharge Ordered Location: Home [facility] Problem: an ongoing problem [facility] Symptoms: have improved [facility] Condition: Stable [facility] Diagnosis - Dyspnea, unspecified [facility] Followup: [facility] - With: Private Physician - When: 1 - 2 days - Reason: Worsening of condition, Recheck today's complaints, Continuance of care, Re-evaluation by your physician Followup: [facility] - With: Beny Peraza MD - When: 1 - 2 days - Reason: Worsening of condition, Recheck today's complaints, Continuance of care, Re-evaluation by your physician Discharge Instructions: - Discharge Summary Sheet [facility] - Shortness of Breath, Adult, [id number] [facility] Forms: - Medication Reconciliation Form [facility] - Thank You Letter [facility] - Antibiotic Education [facility] - Prescription Opioid Use [facility] Signatures: Dispatcher [employer] EDMS Raji Nichols, ORACLE EBS ARCHITECT-C ORACLE EBS ARCHITECT-Cla1 Sanjeev Benedict, RN RN jb4 Juan Daniel Bundy MD MD [facility]
--- NOTE | 2022-04-14 01:11 | ER ---
Nurse's Notes [facility] Name: Kj Colon Age: 62 yrs Sex: Male : 1960 Arrival Date: 04/13/2022 Time: 19:40 Bed 8 Private MD: Diagnosis: Dyspnea, unspecified Presentation: 04/13 19:46 Chief complaint: Patient states: I feel short of breath and I feel like my A-fib is jb4 acting up. It started yesterday and has persisted through to today. Coronavirus screen: At this time, the client does not indicate any symptoms associated with coronavirus-19. Ebola Screen: No symptoms or risks identified at this time. Initial Sepsis Screen: Does the patient meet any 2 criteria? HR > 90 bpm. Yes Does the patient have a suspected source of infection? No. Patient's initial sepsis screen is negative. Risk Assessment: Do you want to hurt yourself or someone else? Patient reports no desire to harm self or others. Onset of symptoms was April 12, 2022. Transition of care: patient was not received from another setting of care. 19:46 Method Of Arrival: Ambulatory jb4 19:46 Acuity: CHEN 3 jb4 Triage Assessment: 19:47 General: Appears in no apparent distress. comfortable, Behavior is calm, cooperative, jb4 appropriate for age. Pain: Denies pain. Neuro: Level of Consciousness is awake, alert, obeys commands, Oriented to person, place, time, situation. Cardiovascular: Patient's skin is warm and dry. Respiratory: Reports shortness of breath on exertion Airway is patent Respiratory effort is even, unlabored, Respiratory pattern is regular, symmetrical, Onset: The symptoms/episode began/occurred yesterday, the patient has mild shortness of breath. Derm: Skin is intact, Skin is pink, warm \T\ dry. Musculoskeletal: Circulation, motion, and sensation intact. Range of motion: intact in all extremities. Historical: - Allergies: 19:47 PENICILLINS; jb4 - Home Meds: 19:47 Eliquis oral [Active]; Metoprolol Tartrate Oral [Active]; Furosemide Oral [Active]; jb4 - PMHx: 19:47 A-fib; jb4 19:55 Systolic CHF (EF 10-15%); la1 - PSHx: 19:47 hernia repair; jb4 - Immunization history:: Adult Immunizations not up to date, Client reports having NOT received the Covid vaccine. - Social history:: Smoking status: Patient denies any tobacco usage or history of. Screenin:58 Abuse screen: Denies threats or abuse. Denies injuries from another. Nutritional as6 screening: No deficits noted. Tuberculosis screening: No symptoms or risk factors identified. Fall Risk None identified. Assessment: 20:56 General: Appears in no apparent distress. Behavior is calm, cooperative, pt refused as6 COVID and FLU swab at this time . Pain: Denies pain. Neuro: Schafer Agitation-Sedation Scale (RASS): 0 - Alert and Calm Level of Consciousness is awake, alert, obeys commands, Oriented to person, place, time, situation. Cardiovascular: Rhythm is atrial fibrillation. Cardiovascular: Reports shortness of breath. Respiratory: Reports shortness of breath on exertion Respiratory effort is even, unlabored, Respiratory pattern is regular, symmetrical, Breath sounds are clear bilaterally. Derm: Skin is intact. 22:19 Reassessment: Patient appears in no apparent distress at this time. Patient and/or as6 family updated on plan of care and expected duration. Pain level reassessed. 04/14 00:03 Reassessment: Patient and/or family updated on plan of care and expected duration. Pain as6 level reassessed. Vital Signs: 04/13 19:46 BP 121 / 82; Pulse 95; Resp 18; Temp 97.5(TE); Pulse Ox 99% on R/A; Weight 101.15 kg jb4 (R); Height 6 ft. 2 in. (187.96 cm) (R); Pain 0/10; 20:58 BP 135 / 94; Pulse 90; Resp 20 S; Pulse Ox 96% on R/A; as6 22:18 BP 137 / 101; Pulse 78; Resp 20 S; Pulse Ox 95% on R/A; as6 04/14 00:03 BP 123 / 90; Pulse 78; Resp 18 S; Pulse Ox 96% on R/A; as6 01:39 BP 129 / 88; Pulse 82; Resp 18 S; Pulse Ox 100% on R/A; as6 04/13 19:46 Body Mass Index 28.63 (101.15 kg, 187.96 cm) [facility] ED Course: 06/12 19:40 Patient arrived in ED. jj6 19:47 Triage completed. jb4 19:47 Arm band placed on right wrist. jb4 20:25 Juan Daniel Bundy MD is Attending Physician. mh7 20:38 Toribio Cazares, RN is Primary Nurse. as6 20:39 D-Dimer Sent. mh5 20:39 Basic Metabolic Panel Sent. mh5 20:40 CBC with Diff Sent. mh5 20:40 LFT's Sent. mh5 20:40 Magnesium Sent. mh5 20:40 NT PRO-BNP Sent. mh5 20:40 PT-INR Sent. mh5 20:40 Troponin HS Sent. mh5 20:40 Initial lab(s) drawn, by me, sent to lab. EKG done, by ED staff, reviewed by Juan Daniel Bundy MD. Inserted saline lock: 20 gauge in right antecubital area, using aseptic technique. Blood collected. 20:41 Patient has correct armband on for positive identification. Placed in gown. Bed in low mh5 position. Call light in reach. Side rails up X 1. Adult w/ patient. Warm blanket given. double bass player on. Pulse ox on. NIBP on. 21:00 XRAY Chest (1 view) In Process Unspecified. EDMS 22:13 Chest For PE Angio CT In Process Unspecified. EDMS 22:19 PO fluids given. as6 0613 01:10 Beny Peraza MD is Referral Physician. mh7 01:39 No provider procedures requiring assistance completed. IV discontinued, intact, as6 bleeding controlled, No redness/swelling at site. Pressure dressing applied. Administered Medications: No medications were administered Medication: 01:39 VIS not applicable for this client. as6 Outcome: 01:11 Discharge ordered by . mh7 01:39 Discharged to home via wheelchair. as6 01:39 Condition: stable 01:39 Discharge instructions given to patient, Instructed on discharge instructions, follow up and referral plans. Demonstrated understanding of instructions, follow-up care. 01:40 Patient left the ED. as6 Signatures: Dispatcher [employer] EDMS Raji Nichols, [employer]-C [employer]-Cla1 Sanjeev Benedict, RN RN jb4 Ginny Marte Maurice, MD MD 7 Aide Ya jj6 [place], [place], RN RN as6
[2022-04-14 01:56] VITALS: TEMP 97.5
[2022-04-14 02:08] VITALS: BP 129/88; O2SAT 100
--- NOTE | 2022-04-14 13:34 | EKG ---
Test Date: 2022-04-13 Test Time: 19:47:41 Business Intelligence Analyst: FRANCINE MEASUREMENT RESULTS: Intervals: Rate: 87 SC: QRSD: 86 QT: 376 QTc: 452 [place]: P: SC: QRS: 57 T: 102 INTERPRETIVE STATEMENTS: Atrial fibrillation Nonspecific T wave abnormality Abnormal ECG Compared to ECG 02/02/2022 14:17:06 No significant changes Electronically Signed On 04-14-22 13:33:20 CDT by Rodolfo Hager
== END 2022-04-14 01:40 | disposition home or self-care (01) ==
LOC: ER 19:37
DX: R06.00 Dyspnea, unspecified (principal); I48.91 Unspecified atrial fibrillation; I50.20 Unspecified systolic (congestive) heart failure; Z88.0 Allergy status to penicillin
CPT/HCPCS: 93005; 85025; 80048; 36415; 83735; 85610; 85379; 80076; 81003; 84484; 83880; 71275; 71045; Q9967; 99284